=== PATIENT | female | born 1990 | race Caucasian/White ===

== ENCOUNTER 2018-06-07 10:47 | Emergency (ER) | payer MEDICAID ==
[2018-06-07] MEDS ORDERED: Bupivacaine 0.5% 10 ML SDV INFILT ONE (10:48)
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
[2018-06-07] MEDS ORDERED: Diphtheria,Pertussis(Acell),Tetanus Vaccine 0.5 ML SDV IM ONE (11:26)
[2018-06-07] MEDS ORDERED: Acetaminophen/HYDROcodone 325-10 MG Tab PO ONE (12:17)
== END 2018-06-07 12:36 | disposition home or self-care (01) ==
LOC: FB.ED 10:47
DX: S01.01XA Laceration without foreign body of scalp, initial encounter (principal); V49.9XXA Car occupant (driver) (passenger) injured in unspecified traffic accident, initial encounter; Z23 Encounter for immunization
CPT/HCPCS: 12002; 36415; 70450; 72125; 80048; 80305; 81025; 85025; 85610; 90471; 90715; 99285; A9270; J3490

== ENCOUNTER 2019-08-13 02:39 | Emergency (ER) | payer SELFPAY ==
--- NOTE | 2019-08-13 03:01 | EDM.PDOC ---
ED HPI GENERAL MEDICAL PROBLEM - General Chief Complaint: Respiratory Problem Stated Complaint: flu Time Seen by Provider: 08/13/19 02:57 Source of Information: Reports: Patient History Limitations: Reports: No Limitations - History of Present Illness INITIAL COMMENTS - FREE TEXT/NARRATIVE: 29-year-old female who reports 2 weeks ago began having cough and nasal congestion and she has had persistent cough with nasal congestion for the past 2 weeks. Over the past 2 days she has noticed increasing cough with feelings of difficulty breathing and at times she awakens and feels that she "can't breathe ". She has also had intermittent fevers throughout the past 2 weeks as well. She has had some episodes of posttussive emesis but really does not have any nausea. There is been no diarrhea. She has diffuse body aches and headache she reports that the headache is frontal he and temporally located and the pain as an aching type pain and all of these pains rated by her as a 7/10. Nothing really seems to make these symptoms better. She has been able to drink liquids well and she reports that she has been eating normally. She has had no travel. She has had no known exposure to anyone with Coronavirus 19. There are no other associated signs or symptoms. There are no other modifying factors. Onset: Other (2 weeks ago) Duration: Getting Worse (Past few days) Location: Reports: Head, Generalized Quality: Reports: Ache Severity: Moderate Improves with: Reports: Rest Worsens with: Reports: Other (Palpation. Cough.) Context: Reports: Other Associated Symptoms: Reports: Cough, Fever/Chills, Shortness of Breath Treatments CANDY ROLLER: Reports: Acetaminophen (Earlier, greater than 6 hours ago) generalized pain Pain Score (Numeric/FACES): 3 - Related Data Allergies Allergy/AdvReac Type Severity Reaction Status Date / Time No Known Allergies Allergy Verified 08/13/19 02:53 Home Meds: Home Meds Azithromycin [Zithromax] 250 mg PO DAILY #4 tab 08/13/19 [Rx] predniSONE 40 mg PO DAILY #8 tab 08/13/19 [Rx] Past Medical History - Past Health History Medical/Surgical History: Denies Medical/Surgical History (No chronic medical problems. 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 She is here with her family member.) ED ROS GENERAL - Review of Systems Review Of Systems: See Below Constitutional: Reports: Fever, Chills, Malaise HEENT: Reports: Other (Nasal congestion) Respiratory: Reports: Shortness of Breath, Cough, Sputum (Yellow-green phlegm at times) Cardiovascular: Reports: No Symptoms GI/Abdominal: Reports: No Symptoms : Reports: No Symptoms Musculoskeletal: Reports: Other (Body aches throughout) Skin: Reports: No Symptoms Neurological: Reports: Headache Hematologic/Lymphatic: Reports: No Symptoms Immunologic: Reports: No Symptoms ED EXAM, GENERAL - Physical Exam Exam: See Below Exam Limited By: No Limitations General Appearance: Alert, WD/WN, Mild Distress Eye Exam: Right Eye: Globe Laceration, Bilateral Eye: EOMI, Normal Inspection, PERRL Ears: Normal External Exam, Hearing Grossly Normal Ear Exam: Bilateral Ear: Auricle Normal Nose: No Blood, Nasal Drainage Throat/Mouth: Normal Inspection, Normal Lips, Normal Oropharynx, Normal Voice, No Airway Compromise Head: Atraumatic, Normocephalic Neck: Normal Inspection, Supple, Non-Tender, Full Range of Motion Respiratory/Chest: No Respiratory Distress, Lungs Clear, No Accessory Muscle Use , Chest Non-Tender Cardiovascular: Normal Peripheral Pulses, No JVD, No Murmur, Tachycardia (Rate was in the 110 range on my exam) Peripheral Pulses: 2+: Radial (L), Radial (R) GI/Abdominal: Normal Bowel Sounds, Soft, Non-Tender, No Mass Back Exam: Normal Inspection, Full Range of Motion Extremities: Normal Inspection, Normal Range of Motion, Non-Tender, No Pedal Edema, Normal Capillary Refill Neurological: Alert, Oriented, CN II-XII Intact, Normal Cognition, No Motor/ Sensory Deficits Skin Exam: Warm, Dry, Intact, Normal Color, No Rash Lymphatic: No Adenopathy Course - Vital Signs Last Recorded V/S: Last Vital Signs Temp 38.1 C 08/13/19 04:06 Pulse 125 H 08/13/19 04:06 Resp 20 08/13/19 04:06 BP 124/59 L 08/13/19 04:06 Pulse Ox 98 08/13/19 04:06 - Orders/Labs/Meds Orders: Active Orders 24 hr Category Date Time Status RT Aerosol Therapy [RC] ASDIRECTED Care 08/13/19 03:12 Active Chest 2V [CR] Stat Exams 08/13/19 03:11 Taken Azithromycin [Zithromax] Med 08/13/19 04:12 Once 500 mg PO ONETIME ONE Meds: Medications Discontinued Medications Generic Name Dose Route Start Last Admin Trade Name Che PRN Reason Stop Dose Admin Acetaminophen 1,000 mg 08/13/19 03:11 08/13/19 03:18 Tylenol Extra Strength PO 08/13/19 03:12 1,000 mg ONETIME ONE Administration Albuterol 2.5 mg 08/13/19 03:11 08/13/19 03:18 Proventil Neb Soln NEB 08/13/19 03:12 2.5 mg ONETIME ONE Administration Albuterol/Ipratropium 3 ml 08/13/19 03:11 08/13/19 03:18 Duoneb 3.0-0.5 Mg/3 Ml NEB 08/13/19 03:12 3 ml ONETIME ONE Administration Prednisone 60 mg 08/13/19 03:12 08/13/19 03:18 Prednisone PO 08/13/19 03:13 60 mg ONETIME ONE Administration - Radiology Interpretation Free Text/Narrative:: Chest x-ray PA and lateral shows no acute disease. - Re-Assessments/Exams Free Text/Narrative Re-Assessment/Exam: 08/13/19 04:10: No real change in her exam after the nebulizer treatment. She still has the hacking cough she still has no wheezes and her air movement seems to be good. No rales or rhonchi as well. She still has tachycardia and Isabella a temperature of 100.5F. Her chest x-ray shows no evidence of pneumonia. With the cough, negative congestion and persisting fever that has lasted for 2 weeks , I will treat the patient with a course of Zithromax. I will also continue the prednisone for 4 more days. She is to increase her fluid intake. Precautions and reasons for return to the emergency department were discussed with the patient prior to her discharge. Departure - Departure Time of Disposition: 04:17 Disposition: Home, Self-Care 01 Condition: Good Clinical Impression: Bronchitis Dyspnea Qualifiers: Dyspnea type: unspecified Qualified Code(s): R06.00 - Dyspnea, unspecified - Discharge Information Prescriptions: Azithromycin [Zithromax] 250 mg PO DAILY #4 tab predniSONE 40 mg PO DAILY #8 tab Instructions: Shortness of Breath, Adult, [id number], Acute Bronchitis, Adult , [id number] Referrals: PCP,None [Primary Care Provider] - Forms: ED Department Discharge Additional Instructions: Your chest x-ray showed no evidence of pneumonia. You have symptoms of an upper respiratory infection/bronchitis. The nebulizer treatment did not seem to help you and did not have any wheezing before or after the treatment. Therefore, I don't feel that an inhaler will help you. I am placing you on a course of antibiotics (Zithromax) and you will not need to take another dose until tomorrow morning. I am also continuing the prednisone for 4 more days and once again you will not need to take another dose until tomorrow morning. Continue to take Tylenol or your fever and pain as needed you may also take ibuprofen 600 mg by mouth every 6 hours as needed for fever or pain. Follow-up with your primary doctor as needed. Back to the emergency department for is breathing, coughing of blood, unrelenting vomiting or any other concerning sign or symptom. Sepsis Event Note - Evaluation Sepsis Screening Result: Possible Sepsis Risk - Focused Exam Vital Signs: Vital Signs Temp Pulse Resp BP Pulse Ox 08/13/19 04:06 38.1 C 125 H 20 124/59 L 98 08/13/19 02:45 38.1 C 125 H 20 114/80 98 Date Exam was Performed: 08/13/19 Time Exam was Performed: 04:13 - My Orders Last 24 Hours: My Active Orders 08/13/19 03:11 Chest 2V [CR] Stat 08/13/19 03:12 RT Aerosol Therapy [RC] ASDIRECTED 08/13/19 04:12 Azithromycin [Zithromax] 500 mg PO ONETIME ONE - Assessment/Plan Last 24 Hours: My Active Orders 08/13/19 03:11 Chest 2V [CR] Stat 08/13/19 03:12 RT Aerosol Therapy [RC] ASDIRECTED 08/13/19 04:12 Azithromycin [Zithromax] 500 mg PO ONETIME ONE
[2019-08-13] MEDS: Acetaminophen 500 MG Tab PO ONE (03:18)
[2019-08-13] MEDS: Albuterol/Ipratropium 3.0-0.5 MG/3 ML Neb Soln NEB ONE (03:18)
[2019-08-13] MEDS: Albuterol 0.083% 2.5 MG/3 ML Neb Soln NEB ONE (03:18)
[2019-08-13] MEDS: predniSONE 20 MG Tab PO ONE (03:18)
[2019-08-13] MEDS: Azithromycin 500 MG Tab PO ONE (04:16)
--- NOTE | 2019-08-13 11:27 | CR ---
INDICATION: Cough, fever, shortness of breath. CHEST, 2 VIEWS: PA and lateral views of the chest were obtained 08/13/19 - no comparisons. The heart, mediastinum and bony thorax were unremarkable. There is infiltration in the left lower lobe compatible with patchy consolidating pneumonia. No definite pleural effusion was seen. The right lung and pleural space were unremarkable. IMPRESSION: Left lower lobe pneumonia is suggested. Followup is recommended. MTDD
== END 2019-08-13 04:30 | disposition home or self-care (01) ==
LOC: FB.ED 02:39
DX: J40 Bronchitis, not specified as acute or chronic (principal); Z79.899 Other long term (current) drug therapy; R00.0 Tachycardia, unspecified
CPT/HCPCS: 71046; 94640; 99283; 99283-25; A9270-GY; J7620-GY

== ENCOUNTER 2020-06-21 21:31 | Emergency (ER) | payer SELFPAY ==
[2020-06-21] MEDS ORDERED: Ketorolac 60 MG/2 ML SDV IM ONE (22:45)
--- NOTE | 2020-06-21 22:48 | EDM.PDOC ---
ED HPI GENERAL MEDICAL PROBLEM - General Chief Complaint: Upper Extremity Injury/Pain Stated Complaint: HAND INJURY Time Seen by Provider: 06/21/20 22:05 Source of Information: Reports: Patient History Limitations: Reports: No Limitations - History of Present Illness INITIAL COMMENTS - FREE TEXT/NARRATIVE: Patient presented to the ED because of left hand pain and swelling on the 2nd and 3rd finger. She woke up with pain and is progressively getting worse. Treatments TECHNOLOGY SERVICES MANAGER: Reports: Acetaminophen L hand over 2nd proximal knuckle Pain Score (Numeric/FACES): 7 - Related Data Allergies Allergy/AdvReac Type Severity Reaction Status Date / Time No Known Allergies Allergy Verified 06/21/20 22:07 Home Meds: Home Meds Naproxen 500 mg PO BID #15 tablet 06/21/20 [Rx] Past Medical History - Past Health History Medical/Surgical History: Denies Medical/Surgical History (No chronic medical problems. Surgical history as detailed below.) Genitourinary History: Reports: None ELECTRICIAN FRONT History: Reports: Other ELECTRICIAN FRONT History: 3 c-sections, - Infectious Disease History Infectious Disease History: Reports: Chicken Pox, Novel Coronavirus - Past Surgical History Female Surgical History: Reports: Section Other Female Surgeries/Procedures: CS x 3 Social & Family History - Family History Family Medical History: No Pertinent Family History - Tobacco Use Tobacco Use Status *Q: Never Tobacco User - Caffeine Use Caffeine Use: Reports: Energy Drinks, Soda - Recreational Drug Use Recreational Drug Use: No - Living Situation & Occupation Occupation: Unemployed (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.) Review of Systems - Review of Systems Review Of Systems: See Below Constitutional: Reports: No Symptoms Ears: Reports: No Symptoms Nose: Reports: No Symptoms Mouth/Throat: Reports: No Symptoms Respiratory: Reports: No Symptoms Cardiovascular: Reports: No Symptoms GI/Abdominal: Reports: No Symptoms Genitourinary: Reports: No Symptoms Musculoskeletal: Reports: Joint Swelling Skin: Reports: No Symptoms Neurological: Reports: No Symptoms Psychiatric: Reports: No Symptoms ED EXAM, GENERAL - Physical Exam Exam: See Below Exam Limited By: No Limitations General Appearance: Alert, No Apparent Distress Ears: Normal External Exam, Normal Canal, Hearing Grossly Normal Nose: Normal Inspection, Normal Mucosa, No Blood Throat/Mouth: Normal Inspection, Normal Lips Head: Atraumatic, Normocephalic Neck: Normal Inspection, Supple, Non-Tender, Full Range of Motion Respiratory/Chest: No Respiratory Distress, Lungs Clear, Normal Breath Sounds Cardiovascular: Normal Peripheral Pulses, Regular Rate, Rhythm, No Edema, No Gallop GI/Abdominal: Normal Bowel Sounds, Soft, Non-Tender, No Organomegaly Back Exam: Normal Inspection, Full Range of Motion Extremities: Normal Inspection, Normal Range of Motion, Non-Tender, Other (tenderness and swell -left 2nd and 3rd finger) Course - Vital Signs Text/Narrative:: Xray left hand-neg Toradol 60 mg IM x1 Last Recorded V/S: Last Vital Signs Temp 36.8 C 06/21/20 22:00 Pulse 80 06/21/20 22:00 Resp 18 06/21/20 22:00 BP 112/47 L 06/21/20 22:00 Pulse Ox 99 06/21/20 22:00 - Orders/Labs/Meds Orders: Active Orders 24 hr Category Date Time Status Hand Comp Min 3V Lt [CR] Stat Exams 06/21/20 22:03 Taken Meds: Medications Discontinued Medications Generic Name Dose Route Start Last Admin Trade Name Freq PRN Reason Stop Dose Admin Ketorolac Tromethamine 60 mg 06/21/20 22:45 Toradol IM 06/21/20 22:46 ONETIME ONE Departure - Departure Time of Disposition: 22:45 Disposition: Home, Self-Care 01 Condition: Good Clinical Impression: Sprain - Discharge Information Prescriptions: Naproxen 500 mg PO BID #15 tablet Instructions: Finger Sprain, Adult, [id number] Referrals: PCP,None [Primary Care Provider] - Forms: ED Department Discharge Additional Instructions: Please read discharge instructions on hand sprain Apply ice,elevate Take naproxen 500 mg twice daily for 7 days Follow up as needed Sepsis Event Note (ED) - Evaluation Sepsis Screening Result: No Definite Risk - Focused Exam Vital Signs: Vital Signs Temp Pulse Resp BP Pulse Ox 06/21/20 22:00 36.8 C 80 18 112/47 L 99 - My Orders Last 24 Hours: My Active Orders 06/21/20 22:03 Hand Comp Min 3V Lt [CR] Stat - Assessment/Plan Last 24 Hours: My Active Orders 06/21/20 22:03 Hand Comp Min 3V Lt [CR] Stat
--- NOTE | 2020-06-22 10:31 | CR ---
INDICATION: Pain and swelling left 2nd and 3rd fingers. LEFT HAND: Three views of the left hand were obtained 06/21/20 - no comparison. There is what appears to be a chip fracture fragment off the medial aspect of the ungual tuft of the index finger with approximately 2 mm distal distraction of the chip fracture fragment. The possibility this represents a chip fracture fragment with healing in deformity would be a consideration as there is no history of recent trauma provided. No other bone or joint abnormality was identified. If symptoms persist - if occult bony abnormality is suspected clinically, reexamination in 10 to 14 days and/or more advanced imaging may be helpful. JENNAD
== END 2020-06-21 23:00 | disposition home or self-care (01) ==
LOC: FB.ED 21:31
DX: S63.92XA Sprain of unspecified part of left wrist and hand, initial encounter (principal); Z86.16 Personal history of COVID-19; X58.XXXA Exposure to other specified factors, initial encounter
CPT/HCPCS: 73130-LT; 96372; 99283; J1885

== ENCOUNTER 2021-01-09 22:24 | Emergency (ER) | payer MEDICAID, OTHER ==
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
[2021-01-09] MEDS ORDERED: Acetaminophen 500 MG Tab PO ONE (23:23)
[2021-01-09] MEDS ORDERED: Cephalexin 500 MG Cap PO ONE (23:38)
== END 2021-01-09 23:50 | disposition home or self-care (01) ==
LOC: FB.ED 22:24
DX: O9A.23 Injury, poisoning and certain other consequences of external causes complicating the puerperium (principal); O23.43 Unspecified infection of urinary tract in pregnancy, third trimester; O99.283 Endocrine, nutritional and metabolic diseases complicating pregnancy, third trimester; S39.91XA Unspecified injury of abdomen, initial encounter; E86.0 Dehydration; Z3A.30 30 weeks gestation of pregnancy
CPT/HCPCS: 81001; 87086; 99284; A9270

== ENCOUNTER 2021-01-23 09:33 | Emergency (ER) | payer SELFPAY ==
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
== END 2021-01-23 11:00 | disposition home or self-care (01) ==
LOC: FB.ED 09:33
DX: N39.0 Urinary tract infection, site not specified (principal)
CPT/HCPCS: 81001; 87086; 99284

== ENCOUNTER 2021-04-11 14:31 | Emergency (ER) | payer SELFPAY ==
--- NOTE | 2021-04-11 14:54 | EDM.PDOC ---
ED HPI GENERAL MEDICAL PROBLEM - General Stated Complaint: C/S INCISION POSSIBLE INFECTED Time Seen by Provider: 04/11/21 14:40 Source of Information: Reports: Patient History Limitations: Reports: No Limitations - History of Present Illness INITIAL COMMENTS - FREE TEXT/NARRATIVE: Patient presented to the ED because her incision has a clear discharge and is turning red and tender. There is no fever, chills. She had a on 03/27/21. Lower Abdomen Pain Score (Numeric/FACES): 4 - Related Data Allergies Allergy/AdvReac Type Severity Reaction Status Date / Time No Known Allergies Allergy Verified 04/11/21 15:50 Home Meds: Home Meds Pnv No.95/Ferrous Fum/Folic AC [ Vitamin Tablet] 1 each PO DAILY 01/09/21 [History] cephALEXin [Keflex] 500 mg PO Q8H #30 cap 04/11/21 [Rx] Past Medical History - Past Health History Medical/Surgical History: Denies Medical/Surgical History Genitourinary History: Reports: None HOOP BENDER TANK History: Reports: Other HOOP BENDER TANK History: 3 c-sections, - Infectious Disease History Infectious Disease History: Reports: Chicken Pox, Novel Coronavirus - Past Surgical History Female Surgical History: Reports: Section Other Female Surgeries/Procedures: CS x 3 Social & Family History - Family History Family Medical History: No Pertinent Family History - Caffeine Use Caffeine Use: Reports: Soda - Living Situation & Occupation 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.) ED ROS GENERAL - Review of Systems Review Of Systems: See Below Constitutional: Reports: No Symptoms HEENT: Reports: No Symptoms Respiratory: Reports: No Symptoms Cardiovascular: Reports: No Symptoms Endocrine: Reports: No Symptoms GI/Abdominal: Reports: No Symptoms : Reports: No Symptoms Musculoskeletal: Reports: No Symptoms Skin: Reports: Erythema Neurological: Reports: No Symptoms Psychiatric: Reports: No Symptoms ED EXAM, SKIN/RASH Exam: See Below Exam Limited By: No Limitations General Appearance: Alert, No Apparent Distress Ears: Normal External Exam, Normal Canal Nose: Normal Inspection, Normal Mucosa, No Blood Throat/Mouth: Normal Inspection, Normal Lips, Normal Teeth, Normal Oropharynx, Normal Voice Head: Atraumatic, Normocephalic Neck: Normal Inspection, Supple, Non-Tender, Full Range of Motion Respiratory/Chest: No Respiratory Distress, Lungs Clear, Normal Breath Sounds, No Accessory Muscle Use, Chest Non-Tender Cardiovascular: Normal Peripheral Pulses, Regular Rate, Rhythm, No Edema, No Gallop, No JVD, No Murmur, No Rub GI/Abdominal: Normal Bowel Sounds, Soft, Non-Tender, No Organomegaly, No Distention, No Abnormal Bruit, No Mass, Other (incision frankie with serous discharge and erythema) Back Exam: Normal Inspection, Full Range of Motion Extremities: Normal Inspection, Normal Range of Motion, Non-Tender, No Pedal Edema, Normal Capillary Refill Neurological: Alert, Oriented, CN II-XII Intact, Normal Cognition, Normal Gait, Normal Reflexes, No Motor/Sensory Deficits Psychiatric: Normal Affect Skin: Erythema Course - Vital Signs Last Recorded V/S: Last Vital Signs Temp 37.0 C 04/11/21 14:35 Pulse 79 04/11/21 14:35 Resp 16 04/11/21 14:35 BP 100/65 04/11/21 14:35 Pulse Ox 97 04/11/21 14:35 Departure - Departure Time of Disposition: 15:00 Disposition: Home, Self-Care 01 Condition: Good Clinical Impression: Cellulitis - Discharge Information Prescriptions: cephALEXin [Keflex] 500 mg PO Q8H #30 cap Instructions: Cellulitis, Adult Referrals: PCP,None [Primary Care Provider] - Forms: ED Department Discharge Additional Instructions: Please read discharge instructions on cellulitis Take keflex/cephalexin 500 mg 3 times daily for 10 days Follow up as needed Sepsis Event Note (ED) - Focused Exam Vital Signs: Vital Signs Temp Pulse Resp BP Pulse Ox 04/11/21 14:35 37.0 C 79 16 100/65 97
== END 2021-04-11 15:05 | disposition home or self-care (01) ==
LOC: FB.ED 14:31
DX: L03.311 Cellulitis of abdominal wall (principal)
CPT/HCPCS: 99283

== ENCOUNTER 2023-01-13 04:14 | Emergency (ER) | payer SELFPAY ==
[2023-01-13] MEDS ORDERED: Ketorolac 30 MG/ML SDV IM ONE (05:18)
[2023-01-13] MEDS ORDERED: Lidocaine 2% HCl 6 ML Jel STA (05:19)
== END 2023-01-13 06:08 | disposition home or self-care (01) ==
LOC: FB.ED 04:14
DX: K04.7 Periapical abscess without sinus (principal); Z86.16 Personal history of COVID-19
CPT/HCPCS: 96372; 99282; A9270; J1885

== ENCOUNTER 2023-02-19 06:36 | Emergency (ER) | payer SELFPAY ==
[2023-02-19] MEDS ORDERED: Morphine 4 MG/ML VIAL IVPUSH ONE (07:12)
[2023-02-19] MEDS ORDERED: Sodium Chloride 0.9% 10 ML Syringe FLUSH PRN (07:13)
[2023-02-19] MEDS ORDERED: Morphine 2 MG/ML SYRINGE IVPUSH ONE (09:32)
== END 2023-02-19 10:20 | disposition home or self-care (01) ==
LOC: FB.ED 06:36
DX: S61.214A Laceration without foreign body of right ring finger without damage to nail, initial encounter (principal); S61.216A Laceration without foreign body of right little finger without damage to nail, initial encounter; Z86.16 Personal history of COVID-19; Z98.890 Other specified postprocedural states; W26.0XXA Contact with knife, initial encounter
CPT/HCPCS: 73130; 96374; 96376; 99283; J2270

== ENCOUNTER 2023-12-13 18:58 | Emergency (ER) | payer OTHER ==
[2023-12-13] MEDS: Sodium Chloride 0.9% 1,000 ML IV SCH (19:00)
[2023-12-13] MEDS: Sodium Chloride 0.9% 500 ML IV ONE (19:00)
[2023-12-13] MEDS ORDERED: Sodium Chloride 0.9% 10 ML Syringe FLUSH PRN (19:16)
[2023-12-13 19:28] LABS: BASOPHILS ABSOLUTE AUTO 0.1 x10-3/uL (0.0-0.1); BASOPHILS PERCENT AUTO 0.5 % (0.2-1.5); EOSINOPHILS ABSOLUTE AUTO 0.2 x10-3/uL (0.0-0.8); HEMATOCRIT 38.9 % (34.2-48.2); HEMOGLOBIN 12.9 g/dL (11.4-15.5); LYMPHOCYTES ABSOLUTE AUTO 3.8 x10-3/uL (1.0-4.4); LYMPHOCYTES PERCENT AUTO 33.9 % (18.4-52.1); MEAN CORPUSCULAR HEMOGLOBIN 29.3 pg (23.9-33.9); MEAN CORPUSCULAR HGB CONC 33.2 g/dL (31.9-34.8); MEAN CORPUSCULAR VOLUME 88.2 fL (76.7-100.5); MEAN PLATELET VOLUME 8.1 fL (7.1-12.4); MONOCYTES PERCENT AUTO 8.7 % (4.4-15.7); NEUTROPHILS ABSOLUTE AUTO 6.2 x10-3/uL (1.5-6.3); NEUTROPHILS PERCENT AUTO 54.9 % (30.8-76.2); PLATELET COUNT,PLT 305 x10(3)uL (151-488); RED BLOOD CELL COUNT 4.42 x10(6)uL (3.60-5.20); WHITE BLOOD CELL COUNT,WBC 11.2 x10-3/uL (3.0-10.3)
[2023-12-13 19:30] LABS: BLOOD UREA NITROGEN,BUN 12 mg/dL (7-18); CALCIUM 8.5 mg/dL (8.6-10.2); CARBON DIOXIDE,CO2 27 mmol/L (21-32); CHLORIDE,CL 107 mmol/L (100-110); ESTIMATED GFR 77 mL/min (>60); GLUCOSE RANDOM 87 mg/dL (80-116); POTASSIUM,K 3.3 mmol/L (3.5-5.3); SODIUM,NA 143 mmol/L (135-145)
[2023-12-13 19:32] LABS: LIPASE 37 U/L (16-77)
[2023-12-13 19:36] LABS: ALANINE AMINOTRANSFERASE,ALT 19 U/L (12-36); ALBUMIN 3.6 g/dL (3.5-5.2); ALKALINE PHOSPHATASE 66 IU/L (56-112); ASPARTATE AMNIOTRANSFERASE,AST 19 IU/L (5-25); BILIRUBIN TOTAL 0.4 mg/dL (0.1-1.3); PROTEIN TOTAL,TP 7.1 g/dL (6.0-8.0)
[2023-12-13] MEDS: Iopamidol 755 Mg/ML 100 ML Bottle IV SCH (19:43)
[2023-12-13 19:45] LABS: ETHANOL BLOOD MEDICAL < 0.03 % (<0.03)
[2023-12-13 19:49] LABS: BILIRUBIN,URINE NEGATIVE (NEGATIVE); GLUCOSE,URINE NORMAL (NORMAL); KETONES,URINE NEGATIVE (NEGATIVE); LEUKOCYTE ESTERASE,URINE NEGATIVE (NEGATIVE); NITRITE,URINE NEGATIVE (NEGATIVE); OCCULT BLOOD,URINE NEGATIVE (NEGATIVE); PROTEIN,URINE NEGATIVE (NEGATIVE); UROBILINOGEN,URINE NORMAL (NEGATIVE)
[2023-12-13 19:50] LABS: APPEARANCE,URINE CLEAR (CLEAR); BACTERIA,URINE FEW (NS); COLOR,URINE YELLOW (YELLOW); RBC,URINE 0-5 (0-5); SQUAMOUS EPITHELIAL CELLS,UR FEW (NS,R,O); WBC,URINE 0-5 (0-5)
== END 2023-12-13 20:15 ==
LOC: FB.ED 18:58
DX: S09.90XA Unspecified injury of head, initial encounter (principal); R41.0 Disorientation, unspecified; R07.89 Other chest pain; Z86.16 Personal history of COVID-19; V43.52XA Car driver injured in collision with other type car in traffic accident, initial encounter; Z79.899 Other long term (current) drug therapy
CPT/HCPCS: 36415; 51702; 70450; 71045; 71260; 72125; 74177; 80053; 80307; 81001; 81025; 83690; 85025; 93005; 93010; 99285; J7030; J7040; Q9967

== ENCOUNTER 2024-10-05 19:30 | Emergency (ER) | payer OTHER, MEDICAID ==
[2024-10-05] MEDS: hydrOXYzine HCl 50 MG/ML SDV IM ONE (20:29)
== END 2024-10-05 20:55 ==
LOC: FB.ED 19:30
DX: F41.0 Panic disorder [episodic paroxysmal anxiety] (principal); R06.4 Hyperventilation; Z86.16 Personal history of COVID-19
CPT/HCPCS: 93005; 96372; 99285; J3410